=== PATIENT | male | born 1960 | race Caucasian/White ===

== ENCOUNTER 2018-07-25 10:46 | Day surgery (SDC) | payer BC ==
[~2018-07-25] VITALS: Ht 180.3 cm; Wt 112.0 kg
[~2018-07-25 10:46] MED LIST: LISI5 PO; METF500C PO; OXYACE7.5T PO; RXOXYACE PO; SIMV10 PO; SULTRIDS PO
[2018-07-25] MEDS ORDERED: GLIP5ER PO (11:27)
[2018-07-25] MEDS ORDERED: Aspir 8181 MG PO (11:28)
== END 2018-07-25 13:46 | disposition home or self-care (01) ==
LOC: ORSCSDS 10:46
PROVIDERS: Student in an Organized Health Care Education/Training Program
PROC: 0DBK8ZX Excision of Ascending Colon, Via Natural or Artificial Opening Endoscopic, Diagnostic (ICD-10-PCS; principal; 2018-07-25 12:00)
DX: Z12.11 Encounter for screening for malignant neoplasm of colon (principal); D12.2 Benign neoplasm of ascending colon; K57.30 Diverticulosis of large intestine without perforation or abscess without bleeding; K64.8 Other hemorrhoids; I10 Essential (primary) hypertension; E78.5 Hyperlipidemia, unspecified; E11.9 Type 2 diabetes mellitus without complications; Z79.899 Other long term (current) drug therapy; Z87.891 Personal history of nicotine dependence
CPT/HCPCS: 82947; 88305; J7120

== ENCOUNTER 2018-07-27 23:34 | Observation (INO) | payer BC ==
[~2018-07-27] VITALS: Ht 180.3 cm; Wt 113.4 kg
[~2018-07-27 23:34] MED LIST changes: +Aspir 8181 MG PO; +GLIP5ER PO
[2018-07-28 00:55] LABS: Calcium, Ionized (POC) 1.17 mmol/L (1.10-1.46); Chloride (POC) 108 mmol/L (98-108); Creatinine (POC) 0.9 mg/dL (0.8-1.3); Glucose (ISTAT POC) 135 mg/dL (70-99); Hemoglobin (POC) 11.9 g/dL (13.5-17.5); Sodium (POC) 139 mmol/L (135-148); Total CO2 (POC) 19 mmol/L (21-32)
[2018-07-28 02:31] LABS: Hematocrit 35.1 % (37.0-53.0); Hemoglobin 11.8 g/dL (13.5-17.5)
--- NOTE | 2018-07-28 06:13 | NUR ---
SHIFT SUMMARY & TRANSFER NOTE: PT NEW ADMIT FROM ED EARLY THIS AM. PT REPORTS HAVING DARK RED RECTAL BLEEDING X1 DAY, STARTING LAST NIGHT @ 2100. PT REPORTS HAVING A COLONSCOPY ON 07/25. SINCE ARRIVAL TO UNIT, PT HAS HAD 1 BM; LARGE AMOUNT OF DARK RED LIQUID. PT DENIES PAIN. H/H IS STABLE c THIS AM LABS. CLEAR LIQUID DIET MAINTAINED. DENIES N/V AT THIS TIME. VSS. RESP E/U ON RA. NS RUNNING @ 75 ML/HR. WILL CONT TO MONITOR AND PROVIDE CARE UNTIL PRESUMED BY ONCOMING RN.
[2018-07-28 07:24] LABS: Hematocrit 35.4 % (37.0-53.0); Hemoglobin 11.8 g/dL (13.5-17.5); Mean Corpuscular HGB 30.3 pg (26.0-34.0); Mean Corpuscular HGB Conc 33.3 g/dL (31.5-36.5); Mean Corpuscular Volume 91 fL (80-100); Mean Platelet Volume 10.4 fL (9.1-12.4); Platelet Count 220 K/mm3 (150-400); RDW Coefficient Variation 12.3 % (11.7-14.2); RDW Standard Deviation 40.2 fL (35.1-46.3); Red Blood Cell Count 3.89 M/mm3 (4.30-5.90); White Blood Cell Count 8.32 K/mm3 (4.00-11.30)
[2018-07-28 07:25] LABS: Alanine Aminotransfer (ALT/SGP 45 U/L (12-78); Albumin, Blood 3.3 g/dL (3.4-5.0); Albumin/Globulin Ratio 1.3 (0.8-1.8); Alk Phos 43 U/L (50-136); Anion Gap 10 mmol/L (6-16); Aspartate Aminotrans (AST/SGOT 23 U/L (12-37); Bilirubin, Total 0.2 mg/dL (0.1-1.0); Blood Urea Nitrogen 26 mg/dL (8-24); Bun/Creatinine Ratio 32.5 (12.0-20.0); CO2, Blood 17 mmol/L (21-32); Calcium, Blood 8.2 mg/dL (8.5-10.1); Chloride, Blood 112 mmol/L (98-108); Globulin, Blood 2.6 g/dL (2.2-4.0); Glomerular Filtration Rate >60 (60-); Glucose, Blood 118 mg/dL (70-99); Potassium, Blood 4.3 mmol/L (3.5-5.5); Sodium, Blood 139 mmol/L (136-145); Total Protein, Blood 5.9 g/dL (6.4-8.2)
--- NOTE | 2018-07-28 08:30 | NUR ---
PT QUITE PLEASANT COOP A/O. DENIES PAIN. REPORTS NO LIGHT HEADEDNESS AT THIS TIME. REPORTS STILL PRODUCING RED BLOODY STOOLS. H/R REG, NO MURMER NOTED. NO TELE. LUNGS CLEAR, RESP EASY, UNLABORED. ON R.A. BT X4 LAST BLOODY STOOL THIS AM. HAS BEEN SO SINCE LAST MADI. VOIDS BATHROOM. BED IN LOW POSITION, CALL LITE IN REACH, CALL LITE IN REACH, CALLS APPROP. IN ROOM.
[2018-07-28 09:26] LABS: Hematocrit 33.4 % (37.0-53.0); Hemoglobin 11.3 g/dL (13.5-17.5)
--- NOTE | 2018-07-28 15:36 | NUR ---
DR COHEN IN ROOM. OKAY EAT CLEAR LIQUID DIET H/H BLOOD DRAWS CHANGE TO TODAY ADJUST TO 1900 AND AGAIN ABOUT MIDNITE, THEN AGAIN TOMORROW, SUNDAY, AT [address] COHEN IF HGB < 9
--- NOTE | 2018-07-28 17:34 | NUR ---
PT PLEASANT TODAY. HAS BEEN TO BATHROOOM SEVERAL TIMES TODAY. HAVING SMALL BLOODY STOOLS. TOOK PIC AND SHOWED TO DR COHEN. HE SAW. WATCHING H/H. PARAMETERS TO CALL DR COHEN IF HGB < 9. PT DENIES LIGHTHEADEDNESS, DIZZINESS. NO OTHER CONCERNS AT THIS [place]. BED IN LOW POSITION, CALL LITE IN REACH, CALLS APPROP. INDEPEDANT.
[2018-07-28 19:14] LABS: Hematocrit 30.3 % (37.0-53.0); Hemoglobin 10.2 g/dL (13.5-17.5)
[2018-07-29 03:17] LABS: Hematocrit 30.1 % (37.0-53.0); Hemoglobin 9.9 g/dL (13.5-17.5)
--- NOTE | 2018-07-29 03:35 | NUR ---
58 Y/O MALE RESTED COMFORTABLY IN BED. HG 9.9 THIS AM. PT UP INDEPENTLY WITH GAIT STEADY AND EVEN. PT DENIES PAIN OR NAUSEA. PTS DENIES ANY BLEEDING AND WAS INSTRUCTED TO NOT FLUSH TOILET THIS EVENING AND CALL FOR NURSING STAFF TO OBSERVE ANY BMs (none noted). PTS CALL LIGHT AT BEDSIDE WITH BED IN LOW POSITION.
[2018-07-29 11:35] LABS: Hematocrit 32.1 % (37.0-53.0); Hemoglobin 10.7 g/dL (13.5-17.5)
--- NOTE | 2018-07-29 17:45 | NUR ---
PT. DISCHARGED HOME WITH SPOUSE. INSTRUCTIONS GIVEN
== END 2018-07-29 17:54 | disposition home or self-care (01) ==
LOC: ER 23:34 → ERHOLD 23:35 → MEDS 23:35 → ENPENDDIS 07-29 13:00 → MEDS 07-29 17:54
PROVIDERS: Emergency Medicine; Internal Medicine Gastroenterology; ADMIT Internal Medicine
DX: K91.840 Postprocedural hemorrhage of a digestive system organ or structure following a digestive system procedure (principal); I10 Essential (primary) hypertension; E11.9 Type 2 diabetes mellitus without complications; E78.5 Hyperlipidemia, unspecified; Z88.8 Allergy status to other drugs, medicaments and biological substances; Z79.899 Other long term (current) drug therapy; Z79.82 Long term (current) use of aspirin; Z79.84 Long term (current) use of oral hypoglycemic drugs; Z87.891 Personal history of nicotine dependence; Z86.010 Personal history of colon polyps
CPT/HCPCS: 36415; 80047; 80053; 82272; 82947; 85014; 85018; 85027; 96360; 96361; 99284-25; G0378; J7030

== ENCOUNTER → 2021-09-30 | Outpatient (CLI) | payer BC ==
[2021-09-30 18:58] LABS: BASOPHILS ABSOLUTE AUTO 0.08 K/mm3 (0.00-0.23); BASOPHILS PERCENT AUTO 1 % (0-2); EOSINOPHILS PERCENT AUTO 2 % (0-6); Hematocrit 47.8 % (37.0-53.0); Hemoglobin 16.6 g/dL (13.5-17.5); IMMATURE GRAN ABSOLUTE AUTO 0.03 K/mm3 (0.00-0.10); IMMATURE GRAN PERCENT AUTO 1 % (0-1); LYMPHOCYTES ABSOLUTE AUTO 1.66 K/mm3 (0.84-5.20); LYMPHOCYTES PERCENT AUTO 30 % (21-46); MONOCYTES ABSOLUTE AUTO 0.94 K/mm3 (0.16-1.47); MONOCYTES PERCENT AUTO 17 % (4-13); Mean Corpuscular HGB 30.3 pg (26.0-34.0); Mean Corpuscular HGB Conc 34.7 g/dL (31.5-36.5); Mean Corpuscular Volume 87 fL (80-100); Mean Platelet Volume 11.2 fL (9.1-12.4); NEUTROPHILS PERCENT AUTO 50 % (41-73); Platelet Count 211 K/mm3 (150-400); RDW Coefficient Variation 11.7 % (11.7-14.2); RDW Standard Deviation 37.7 fL (35.1-46.3); Red Blood Cell Count 5.47 M/mm3 (4.30-5.90); White Blood Cell Count 5.61 K/mm3 (4.00-11.30)
[2021-09-30 19:11] LABS: Alanine Aminotransfer (ALT/SGP 196 U/L (12-78); Albumin, Blood 3.9 g/dL (3.4-5.0); Albumin/Globulin Ratio 1.1 (0.8-1.8); Alk Phos 48 U/L (50-136); Anion Gap 9 mmol/L (6-16); Aspartate Aminotrans (AST/SGOT 140 U/L (12-37); Bilirubin, Total 0.5 mg/dL (0.1-1.0); Blood Urea Nitrogen 21 mg/dL (8-24); Bun/Creatinine Ratio 21.2 (12.0-20.0); CO2, Blood 23 mmol/L (21-32); Calcium, Blood 8.6 mg/dL (8.5-10.1); Chloride, Blood 107 mmol/L (98-108); Creatinine, Blood 0.99 mg/dL (0.60-1.20); Globulin, Blood 3.4 g/dL (2.2-4.0); Glomerular Filtration Rate >60 (60-); Glucose, Blood 144 mg/dL (70-99); Potassium, Blood 3.4 mmol/L (3.5-5.5); Sodium, Blood 139 mmol/L (136-145); Total Protein, Blood 7.3 g/dL (6.4-8.2)
== END | disposition home or self-care (01) ==
LOC: LAB SHORT 17:35
PROVIDERS: Nurse Practitioner Family
DX: E11.9 Type 2 diabetes mellitus without complications (principal); R11.0 Nausea; R50.9 Fever, unspecified
CPT/HCPCS: 80053; 83036; 83690; 85025